=== PATIENT | male | born 1970 | race Caucasian/White ===

== ENCOUNTER → 2017-01-10 | Outpatient (CLI) | payer OTHER ==
[~2017-01-10] MED LIST: 'PARAFON FORTE500 M1 PO; BACTRIM DS 8001 TA1 PO; BENTYL10 MG PO; CIPRO500 MG PO; CLARITIN10 MG PO; CLINDAMYCIN150 MG PO; CORTISPORIN SUS10 ML OT; CYCLOBENZAPRINE10 MG PO; DAYPRO600 M1 PO; EC NAPROSYN500 MG PO; FLEXERIL10 MG; FLEXERIL10 MG PO; KETOROLAC10 MG PO; KLONOPIN0.5 MG PO; LIDEX 0.05% CRE15 GM T; MEDROL DOSEPAK4 MG PO; MOTRIN,RUFEN800 MG; MOTRIN800 MG PO; Motrin,Rufen800 MG PO; NAPROSYN500 MG PO; NKHM; NORFLEX100 MG PO; NORTRIPTYLINE10 MG PO; ORPHENADRINE C100 M1 PO; Orphenadrine C100 MG PO; PREDNICOT20 MG PO; PREDNISONE10 MG; PREDNISONE10 MG PO; PREDNISONE20 M1 PO; ROBAXIN750 MG PO; SEPTRA DS 800 M1 TAB PO; SKELAXIN800 MG PO; TORADOL10 MG PO; TRAMADOL HCL50 MG PO; ULTRAM50 MG PO; VICODIN 5/500 505 MG PO; VISTARIL50 MG PO; ZOFRAN ODT4 MG SL
== END | disposition home or self-care (01) ==
LOC: LAB 06:27
DX: E16.1 Other hypoglycemia (principal)

== ENCOUNTER → 2017-02-23 | Outpatient (CLI) | payer OTHER | END | disposition home or self-care (01) | LOC: RAD 15:16 | DX: M25.362 Other instability, left knee (principal); M25.562 Pain in left knee ==

== ENCOUNTER → 2017-04-02 | Outpatient (CLI) | payer OTHER ==
[2017-04-02 10:48] LABS: BASO # 0.1 10*3/uL (0.0-0.1); BASO % 0.8 % (0.0-1.0); EOS # 0.5 10*3/uL (0.0-0.4); EOS % 6.5 % (1.0-4.0); HEMATOCRIT 48.1 % (42.0-52.0); HEMOGLOBIN 17.2 g/dl (14.0-18.0); LYMPH # 2.1 10*3/uL (1.3-4.4); LYMPH % 28.3 % (27.0-41.0); MEAN CELL VOLUME 83.2 fl (80.0-94.0); MEAN CORPUSCULAR HGB 29.8 pg (27.0-31.0); MEAN CORPUSCULAR HGB CONC 35.8 g/dl (33.0-37.0); MEAN PLATELET VOLUME 10.2 fl (9.6-12.3); MONO # 0.6 10*3/uL (0.1-1.0); MONO % 8.8 % (3.0-9.0); PLATELET COUNT AUTOMATED 228 10*3/uL (130-400); RED BLOOD COUNT 5.78 10*6/uL (4.50-5.90); WHITE BLOOD COUNT 7.3 10*3/uL (4.8-10.8)
[2017-04-02 10:59] LABS: BILIRUBIN NEGATIVE (NEGATIVE); BLOOD NEGATIVE (NEGATIVE); CLARITY SL CLOUDY (CLEAR); COLOR YELLOW (YELLOW); GLUCOSE NEGATIVE (NEGATIVE); KETONE NEGATIVE (NEGATIVE); LEUKO ESTERASE NEGATIVE (NEGATIVE); NITRITE NEGATIVE (NEGATIVE); PH 6.5 (5.0-9.0); PROTEIN TRACE (NEGATIVE)
[2017-04-02 11:16] LABS: BUN 12 mg/dl (7-24); CARBON DIOXIDE 28 mmol/L (21-32); CHLORIDE 106 mmol/L (98-107); EST GLOM FILT AFRICAN AMERICAN > 60 ml/min; GLUCOSE 94 mg/dL (65-99); POTASSIUM 3.9 mmol/L (3.5-5.1); SODIUM 142 mmol/L (136-145)
[2017-04-02 11:19] LABS: BACTERIA 2+; EPITHELIAL CELLS 0-2; MUCOUS 2+; WBC 0-2 wbc/hpf (0-5)
== END | disposition home or self-care (01) ==
LOC: LAB 09:43
PROVIDERS: Orthopaedic Surgery
DX: Z01.818 Encounter for other preprocedural examination (principal); S83.242A Other tear of medial meniscus, current injury, left knee, initial encounter; X58.XXXA Exposure to other specified factors, initial encounter; Y93.89 Activity, other specified; Y92.89 Other specified places as the place of occurrence of the external cause; Y99.8 Other external cause status

== ENCOUNTER → 2017-04-09 | Day surgery (SDC) | payer OTHER ==
[2017-04-09] VITALS (8 sets, daily range): BP systolic 108–129; BP diastolic 72–88
[~2017-04-09] VITALS: Ht 175.2 cm; Wt 88.5 kg
[~2017-04-09] MED LIST changes: +ZOFRAN4 MG PO
--- NOTE | ~2017-04-09 | O ---
[place], [place] OPERATIVE NOTE NAME: JONNIE TRAORE [facility] #: [id number] UNIT #: [id number] ROOM: DOCTOR: JEMIMA SOSA DO BIRTHDATE: [birth year] DOS: 04/09/2017 PREOPERATIVE DIAGNOSES: Left knee medial meniscus tear and chondromalacia. 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 OPERATIVE PROCEDURE: Arthroscopy of left knee with medial meniscus tear debridement and chondroplasty of the patella on the medial femoral condyle. SURGEON: Jemima Sosa DO. [employer]: [employer]. ANESTHESIA: Maia Bueno CRNA INDICATIONS: The patient is a 46-year-old male with a history of pain and disability about the left knee, unrelieved with conservative care. The risks and benefits of the procedure were explained to the patient preoperatively. Preoperative labs and x-rays were obtained including preoperative MRI. DESCRIPTION OF PROCEDURE: The left knee was marked in the holding area. The patient was brought to the operative suite. He was placed supine on the operative table. General anesthetic with LMA intubation was performed. Left lower extremity was prepped and draped in usual orthopedic fashion. Timeout was performed. Leg was placed in a leg smith. The area about the medial and lateral parapatellar portals were injected with Marcaine 0.5% with epinephrine. The lateral portal was created using a #11 blade followed by blunt trocar and cannula. The trocar was removed. The cannula remained. The inflow and the outflow were established through the cannula. The arthroscopy camera was placed through the cannula as well. The medial compartment was entered with a spinal needle, followed by #11 blade and a blunt trocar. The knee was evaluated in a systematic fashion. The medial compartment was initially evaluated and noted to have grade 1 chondromalacia about the medial femoral condyle and a small tear of the posterior medial meniscus. The medial meniscus was debrided using a handheld instrumentation and a full radius resector to remove any debris. The articular surface was gently smoothed using a handheld augusto ball rasp and a full radius resector. The notch was identified and evaluated. The anterior cruciate ligament was noted to be intact to probing and anterior drawer test. Lateral compartment was identified and evaluated. The meniscus was intact to probing and the articular surface was essentially intact. The patellofemoral joint was identified and evaluated. There was noted to be grade 1 chondromalacia throughout the patellar surfaces which were gently smoothed using the full radius resector and an arthroscopy wand as well as a handheld augusto ball rasp. [place], [place] OPERATIVE NOTE NAME: JONNIE TRAORE UNIT #: [id number] ROOM: DOCTOR: JEMIMA SOSA DO BIRTHDATE: [birth year] The instrumentation was switched using arthroscopy camera medially and instrumentation laterally. All compartments were again entered and evaluated. Further debridement was performed about the medial meniscus and the articular surface of the medial femoral condyle. When no further repairable or debridable pathology was present, the knee was copiously irrigated with remainder of lactated ringers with epinephrine. The instrumentation was removed. The portals were expressed of any excess fluid. The portals were closed with 3-0 nylon. The knee was injected with Marcaine 0.5% with epinephrine. Xeroform, 4 x 4s, ABDs, cast padding and an Magdaleno were used to create a postoperative dressing. The anesthetic was reversed. The patient was extubated and taken to recovery room in satisfactory condition. Sponge and needle count correct. ESTIMATED BLOOD LOSS: 5 mL. SPECIMENS: None. DRAINS: None. PACKING: None. FINDINGS: 1. Grade 1 chondromalacia about the medial femoral condyle and the patella articular surface. 2. Medial meniscus tear. JEMIMA SOSA DO CM:OPRECORD:OPERATIVE NOTE [id number] JEMIMA SOSA DO 04/09/171840 interface
== END | disposition home or self-care (01) ==
LOC: SDC 04-02 08:45 → LAB 08:45 → SDC 08:45
DX: S83.242A Other tear of medial meniscus, current injury, left knee, initial encounter (principal); M22.42 Chondromalacia patellae, left knee; X58.XXXA Exposure to other specified factors, initial encounter; Y93.9 Activity, unspecified; Y92.9 Unspecified place or not applicable; Y99.9 Unspecified external cause status; I10 Essential (primary) hypertension; F41.9 Anxiety disorder, unspecified; J45.909 Unspecified asthma, uncomplicated; I38 Endocarditis, valve unspecified; Z87.01 Personal history of pneumonia (recurrent); I49.3 Ventricular premature depolarization; Z98.890 Other specified postprocedural states; Z82.5 Family history of asthma and other chronic lower respiratory diseases

== ENCOUNTER → 2017-05-12 | Outpatient (CLI) | payer OTHER ==
[2017-05-12 09:52] LABS: BASO % 0.5 % (0.0-1.0); EOS # 0.3 10*3/uL (0.0-0.4); EOS % 5.4 % (1.0-4.0); HEMATOCRIT 44.6 % (42.0-52.0); HEMOGLOBIN 16.1 g/dl (14.0-18.0); LYMPH # 1.9 10*3/uL (1.3-4.4); MEAN CELL VOLUME 82.3 fl (80.0-94.0); MEAN CORPUSCULAR HGB 29.7 pg (27.0-31.0); MEAN CORPUSCULAR HGB CONC 36.1 g/dl (33.0-37.0); MONO # 0.5 10*3/uL (0.1-1.0); MONO % 7.7 % (3.0-9.0); NEUT # 3.2 10*3/uL (2.3-7.9); NEUT % 54.1 % (47.0-73.0); PLATELET COUNT AUTOMATED 214 10*3/uL (130-400); RED BLOOD COUNT 5.42 10*6/uL (4.50-5.90); RED CELL DISTRI WIDTH 12.3 % (0-14.5); WHITE BLOOD COUNT 5.9 10*3/uL (4.8-10.8)
[2017-05-12 10:27] LABS: ALBUMIN 3.9 gm/dl (3.1-4.5); BUN 9 mg/dl (7-24); CARBON DIOXIDE 25 mmol/L (21-32); CHLORIDE 107 mmol/L (98-107); CHOLESTEROL 139 mg/dL (<200); EST GLOM FILT AFRICAN AMERICAN > 60 ml/min; GLUCOSE 94 mg/dL (65-99); POTASSIUM 3.8 mmol/L (3.5-5.1); SGOT/AST 16 IU/L (3-35); SGPT/ALT 29 U/L (12-78); SODIUM 141 mmol/L (136-145); TRIGLYCERIDES 93 mg/dl (<150); VLDL CHOLESTEROL 19 mg/dL (6-40)
[2017-05-12 10:36] LABS: ALKALINE PHOSPHATASE 77 U/L (45-117); BILIRUBIN, TOTAL 0.7 mg/dl (0.2-1.0); HDL CHOLESTEROL 35 mg/dl (40-60); LDL CHOLESTEROL 85 mg/dL (9-159); TOTAL PROTEIN 6.9 gm/dL (6.4-8.2)
== END | disposition home or self-care (01) ==
LOC: LAB 05-11 15:35
PROVIDERS: Internal Medicine
DX: E66.09 Other obesity due to excess calories (principal); E78.00 Pure hypercholesterolemia, unspecified

== ENCOUNTER 2017-10-16 01:09 | Emergency (ER) | payer SELFPAY ==
[~2017-10-16] VITALS: Ht 175.2 cm; Wt 89.8 kg
[2017-10-16 01:13] VITALS: BP 149/89
[2017-10-16] MEDS ORDERED: NAPROSYN500 MG PO (02:42)
== END 2017-10-16 03:10 | disposition home or self-care (01) ==
LOC: ED 01:09
DX: S93.492A Sprain of other ligament of left ankle, initial encounter (principal); G89.29 Other chronic pain; E16.2 Hypoglycemia, unspecified; Z88.0 Allergy status to penicillin; Z88.5 Allergy status to narcotic agent; Z88.6 Allergy status to analgesic agent; Z88.8 Allergy status to other drugs, medicaments and biological substances; Z79.899 Other long term (current) drug therapy; W01.0XXA Fall on same level from slipping, tripping and stumbling without subsequent striking against object, initial encounter; Y93.89 Activity, other specified; Y92.89 Other specified places as the place of occurrence of the external cause; Y99.8 Other external cause status

== ENCOUNTER 2017-11-02 20:17 | Emergency (ER) | payer SELFPAY ==
[~2017-11-02] VITALS: Ht 175.2 cm; Wt 90.7 kg
[2017-11-02 20:32] VITALS: BP 142/94
[2017-11-02] MEDS ORDERED: CEPHALEXIN500 M1 PO (20:48)
== END 2017-11-02 20:53 | disposition home or self-care (01) ==
LOC: ED 20:17
DX: L03.032 Cellulitis of left toe (principal); Z98.890 Other specified postprocedural states; Z88.0 Allergy status to penicillin; Z88.6 Allergy status to analgesic agent; Z88.5 Allergy status to narcotic agent

== ENCOUNTER → 2017-12-26 | Outpatient (CLI) | payer OTHER ==
[~2017-12-26] MED LIST changes: +CEPHALEXIN500 M1 PO
[2017-12-26 10:09] LABS: BASO # 0.1 10*3/uL (0.0-0.1); BASO % 0.6 % (0.0-1.0); EOS # 0.5 10*3/uL (0.0-0.4); EOS % 5.5 % (1.0-4.0); HEMOGLOBIN 15.6 g/dl (14.0-18.0); LYMPH # 2.6 10*3/uL (1.3-4.4); LYMPH % 29.9 % (27.0-41.0); MEAN CELL VOLUME 84.8 fl (80.0-94.0); MEAN CORPUSCULAR HGB 30.1 pg (27.0-31.0); MEAN CORPUSCULAR HGB CONC 35.5 g/dl (33.0-37.0); MEAN PLATELET VOLUME 9.9 fl (9.6-12.3); MONO # 0.7 10*3/uL (0.1-1.0); MONO % 7.7 % (3.0-9.0); NEUT # 4.8 10*3/uL (2.3-7.9); NEUT % 55.9 % (47.0-73.0); PLATELET COUNT AUTOMATED 238 10*3/uL (130-400); RED BLOOD COUNT 5.19 10*6/uL (4.50-5.90); RED CELL DISTRI WIDTH 11.9 % (0-14.5); WHITE BLOOD COUNT 8.6 10*3/uL (4.8-10.8)
[2017-12-26 10:38] LABS: ALBUMIN 3.8 gm/dl (3.1-4.5); ALKALINE PHOSPHATASE 77 U/L (45-117); BUN 13 mg/dl (7-24); CHLORIDE 107 mmol/L (98-107); CHOLESTEROL 142 mg/dL (<200); CREATININE 1.05 mg/dL (0.70-1.30); HDL CHOLESTEROL 34 mg/dl (40-60); LDL CHOLESTEROL 91 mg/dL (9-159); POTASSIUM 3.7 mmol/L (3.5-5.1); SGOT/AST 13 IU/L (3-35); SGPT/ALT 25 U/L (12-78); SODIUM 141 mmol/L (136-145); TOTAL PROTEIN 6.8 gm/dL (6.4-8.2); TRIGLYCERIDES 87 mg/dl (<150); VLDL CHOLESTEROL 17 mg/dL (6-40)
== END | disposition home or self-care (01) ==
LOC: LAB 09:43
PROVIDERS: Internal Medicine
DX: R35.1 Nocturia (principal); E66.3 Overweight; I10 Essential (primary) hypertension

== ENCOUNTER → 2018-02-03 | Outpatient (CLI) | payer OTHER | END | disposition home or self-care (01) | LOC: ORTHO 00:28 | DX: M25.561 Pain in right knee (principal); M25.461 Effusion, right knee ==

== ENCOUNTER 2018-02-22 21:52 | Emergency (ER) | payer OTHER ==
[~2018-02-22] VITALS: Ht 177.8 cm; Wt 86.2 kg
[2018-02-22 21:56] VITALS: BP 140/82
[2018-02-22] MEDS ORDERED: Orphenadrine C100 MG PO (22:59)
[2018-02-22] MEDS ORDERED: KETOROLAC10 MG PO (22:59)
== END 2018-02-22 23:14 | disposition home or self-care (01) ==
LOC: ED 21:52
DX: M47.816 Spondylosis without myelopathy or radiculopathy, lumbar region (principal); M54.40 Lumbago with sciatica, unspecified side; Z88.0 Allergy status to penicillin; Z88.5 Allergy status to narcotic agent; Z88.6 Allergy status to analgesic agent; Z88.8 Allergy status to other drugs, medicaments and biological substances

== ENCOUNTER → 2018-03-10 | Outpatient (CLI) | payer OTHER | END | disposition home or self-care (01) | LOC: LAB 10:45 | DX: F33.1 Major depressive disorder, recurrent, moderate (principal) ==

== ENCOUNTER → 2018-03-12 | Outpatient (CLI) | payer OTHER | END | disposition home or self-care (01) | LOC: ORTHO 01:52 | DX: M25.562 Pain in left knee (principal); M25.552 Pain in left hip ==

== ENCOUNTER → 2018-04-14 | Outpatient (CLI) | payer OTHER ==
[~2018-04-14] MED LIST changes: +MOBIC7.5 MG PO
== END | disposition home or self-care (01) ==
LOC: MRI 08:44
DX: M71.22 Synovial cyst of popliteal space [Baker], left knee (principal)

== ENCOUNTER 2018-05-09 22:15 | Emergency (ER) | payer OTHER ==
[~2018-05-09] VITALS: Ht 175.2 cm; Wt 90.7 kg
[~2018-05-09 22:15] MED LIST changes: -MOBIC7.5 MG PO
[2018-05-09 22:58] LABS: BASO # 0.1 10*3/uL (0.0-0.1); BASO % 0.4 % (0.0-1.0); EOS # 0.1 10*3/uL (0.0-0.4); EOS % 0.5 % (1.0-4.0); HEMATOCRIT 41.5 % (42.0-52.0); HEMOGLOBIN 14.8 g/dl (14.0-18.0); LYMPH # 1.7 10*3/uL (1.3-4.4); MEAN CELL VOLUME 83.5 fl (80.0-94.0); MEAN CORPUSCULAR HGB 29.8 pg (27.0-31.0); MEAN CORPUSCULAR HGB CONC 35.7 g/dl (33.0-37.0); MONO % 7.6 % (3.0-9.0); NEUT # 10.1 10*3/uL (2.3-7.9); PLATELET COUNT AUTOMATED 212 10*3/uL (130-400); RED BLOOD COUNT 4.97 10*6/uL (4.50-5.90); RED CELL DISTRI WIDTH 12.2 % (0-14.5)
[2018-05-09 23:05] LABS: ALBUMIN 4.3 gm/dl (3.1-4.5); ALKALINE PHOSPHATASE 71 U/L (45-117); BUN 19 mg/dl (7-24); CHLORIDE 104 mmol/L (98-107); CREATININE 1.29 mg/dL (0.70-1.30); POTASSIUM 3.5 mmol/L (3.5-5.1); SGOT/AST 22 IU/L (3-35); SGPT/ALT 35 U/L (12-78); SODIUM 140 mmol/L (136-145); TOTAL PROTEIN 6.8 gm/dL (6.4-8.2)
[2018-05-10 00:56] VITALS: BP 106/63
[2018-05-10] MEDS ORDERED: Orphenadrine C100 MG PO (01:18)
[2018-05-10] MEDS ORDERED: MOBIC7.5 MG PO (01:18)
== END 2018-05-10 01:37 | disposition home or self-care (01) ==
LOC: ED 22:15
PROVIDERS: Emergency Medicine
DX: M54.5 Low back pain (principal); E86.0 Dehydration; I10 Essential (primary) hypertension; G89.29 Other chronic pain; Z88.0 Allergy status to penicillin; Z88.5 Allergy status to narcotic agent; Z88.6 Allergy status to analgesic agent

== ENCOUNTER → 2018-12-02 | Outpatient (CLI) | payer OTHER ==
[~2018-12-02] MED LIST changes: +MOBIC7.5 MG PO
== END | disposition home or self-care (01) ==
LOC: LAB 14:39
DX: K90.0 Celiac disease (principal)

== ENCOUNTER → 2018-12-02 | Outpatient (CLI) | payer OTHER ==
[~2018-12-02] MED LIST changes: +FLONASE ALLERG9.9 ML NAS; +METOPROLOL SUCC25 M2 PO; +PAROXETINE HCL10 MG PO; +ZITHROMAX250 MG PO
== END | disposition home or self-care (01) ==
LOC: RESCLI 09:34
DX: K21.9 Gastro-esophageal reflux disease without esophagitis (principal); K90.0 Celiac disease; K58.9 Irritable bowel syndrome, unspecified; I10 Essential (primary) hypertension; Z86.010 Personal history of colon polyps; Z79.899 Other long term (current) drug therapy; Z88.8 Allergy status to other drugs, medicaments and biological substances; Z88.0 Allergy status to penicillin

== ENCOUNTER 2019-01-20 00:45 | Emergency (ER) | payer OTHER ==
[~2019-01-20] VITALS: Ht 175.2 cm; Wt 96.2 kg
--- NOTE | ~2019-01-20 | EKG ---
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
[~2019-01-20 00:45] MED LIST changes: -FLONASE ALLERG9.9 ML NAS; -METOPROLOL SUCC25 M2 PO; -PAROXETINE HCL10 MG PO; -ZITHROMAX250 MG PO
[2019-01-20] MEDS ORDERED: METOPROLOL SUCC25 M2 PO (00:59)
[2019-01-20] MEDS ORDERED: PAROXETINE HCL10 MG PO (00:59)
[2019-01-20 01:31] LABS: BASO % 0.6 % (0.0-1.0); EOS # 0.5 10*3/uL (0.0-0.4); HEMOGLOBIN 15.9 g/dl (14.0-18.0); LYMPH # 1.8 10*3/uL (1.3-4.4); LYMPH % 25.3 % (27.0-41.0); MEAN CELL VOLUME 86.7 fl (80.0-94.0); MEAN CORPUSCULAR HGB 30.6 pg (27.0-31.0); MEAN CORPUSCULAR HGB CONC 35.3 g/dl (33.0-37.0); MONO # 0.5 10*3/uL (0.1-1.0); MONO % 7.2 % (3.0-9.0); NEUT # 4.3 10*3/uL (2.3-7.9); NEUT % 59.2 % (47.0-73.0); PLATELET COUNT AUTOMATED 215 10*3/uL (130-400); RED BLOOD COUNT 5.19 10*6/uL (4.50-5.90); RED CELL DISTRI WIDTH 12.1 % (0-14.5); WHITE BLOOD COUNT 7.3 10*3/uL (4.8-10.8)
[2019-01-20 01:50] LABS: ALBUMIN 3.4 gm/dl (3.1-4.5); ALKALINE PHOSPHATASE 83 U/L (45-117); BUN 11 mg/dl (7-24); CHLORIDE 109 mmol/L (98-107); CREATININE 0.97 mg/dL (0.70-1.30); POTASSIUM 3.9 mmol/L (3.5-5.1); SGOT/AST 71 IU/L (3-35); SGPT/ALT 187 U/L (12-78); SODIUM 142 mmol/L (136-145); TOTAL PROTEIN 7.1 gm/dL (6.4-8.2)
[2019-01-20 01:52] LABS: TROPONIN I < 0.015 ng/ml (<0.045)
[2019-01-20 02:01] VITALS: BP 141/88
[2019-01-20] MEDS ORDERED: FLONASE ALLERG9.9 ML NAS (02:04)
[2019-01-20] MEDS ORDERED: ZITHROMAX250 MG PO (02:04)
== END 2019-01-20 02:17 | disposition home or self-care (01) ==
LOC: ED 00:45
PROVIDERS: Physician Assistant
DX: J32.0 Chronic maxillary sinusitis (principal); H92.02 Otalgia, left ear; Z88.8 Allergy status to other drugs, medicaments and biological substances; Z88.1 Allergy status to other antibiotic agents; Z88.5 Allergy status to narcotic agent; Z88.6 Allergy status to analgesic agent; Z79.899 Other long term (current) drug therapy; Z90.49 Acquired absence of other specified parts of digestive tract

== ENCOUNTER 2019-02-21 02:12 | Emergency (ER) | payer OTHER ==
[~2019-02-21] VITALS: Wt 95.3 kg
[2019-02-21 02:12] VITALS: BP 132/80
[~2019-02-21 02:12] MED LIST changes: +FLONASE ALLERG9.9 ML NAS; +METOPROLOL SUCC25 M2 PO; +PAROXETINE HCL10 MG PO; +ZITHROMAX250 MG PO
== END 2019-02-21 04:20 | disposition home or self-care (01) ==
LOC: ED 02:12
DX: S96.911A Strain of unspecified muscle and tendon at ankle and foot level, right foot, initial encounter (principal); Z88.8 Allergy status to other drugs, medicaments and biological substances; Z88.0 Allergy status to penicillin; Z88.5 Allergy status to narcotic agent; Z88.6 Allergy status to analgesic agent; Z79.899 Other long term (current) drug therapy; X50.9XXA Other and unspecified overexertion or strenuous movements or postures, initial encounter; Y93.66 Activity, soccer; Y92.322 Soccer field as the place of occurrence of the external cause; Y99.8 Other external cause status

== ENCOUNTER 2020-05-25 23:29 | Emergency (ER) | payer BC ==
[~2020-05-25] VITALS: Ht 175.2 cm; Wt 93.1 kg
[2020-05-25 23:40] VITALS: BP 124/78
== END 2020-05-26 01:47 | disposition home or self-care (01) ==
LOC: ED 23:29
DX: S60.221A Contusion of right hand, initial encounter (principal); I10 Essential (primary) hypertension; J45.909 Unspecified asthma, uncomplicated; M47.816 Spondylosis without myelopathy or radiculopathy, lumbar region; Z88.0 Allergy status to penicillin; Z88.6 Allergy status to analgesic agent; Z88.8 Allergy status to other drugs, medicaments and biological substances; Z79.899 Other long term (current) drug therapy; W21.210A Struck by ice hockey stick, initial encounter; Y93.65 Activity, lacrosse and field hockey; Y92.328 Other athletic field as the place of occurrence of the external cause; Y99.8 Other external cause status

== ENCOUNTER 2021-05-10 00:14 | Emergency (ER) | payer BC ==
[~2021-05-10] VITALS: Ht 175.2 cm; Wt 90.7 kg
[2021-05-10 00:29] VITALS: BP 143/77
[2021-05-10] MEDS ORDERED: VIBRAMYCIN100 MG PO (00:58)
== END 2021-05-10 01:21 | disposition home or self-care (01) ==
LOC: ED 00:14
DX: H66.92 Otitis media, unspecified, left ear (principal); Z88.0 Allergy status to penicillin; Z88.5 Allergy status to narcotic agent; Z88.6 Allergy status to analgesic agent; Z88.8 Allergy status to other drugs, medicaments and biological substances

== ENCOUNTER 2023-06-25 03:54 | Emergency (ER) | payer BC ==
[~2023-06-25] VITALS: Ht 175.2 cm; Wt 93.0 kg
[~2023-06-25 03:54] MED LIST changes: +VIBRAMYCIN100 MG PO
[2023-06-25 04:03] VITALS: BP 148/95
== END 2023-06-25 04:45 | disposition home or self-care (01) ==
LOC: ED 03:54
DX: M54.31 Sciatica, right side (principal); Z88.8 Allergy status to other drugs, medicaments and biological substances; Z88.0 Allergy status to penicillin; Z88.5 Allergy status to narcotic agent; Z88.6 Allergy status to analgesic agent; Z79.2 Long term (current) use of antibiotics; Z79.899 Other long term (current) drug therapy

== ENCOUNTER 2023-09-13 12:34 | Emergency (ER) | payer BC ==
[~2023-09-13] VITALS: Ht 175.2 cm; Wt 93.0 kg
[2023-09-13 12:46] VITALS: BP 150/86
[2023-09-13] MEDS ORDERED: DECADRON4 MG PO (13:58)
[2023-09-13] MEDS ORDERED: MELOXICAM7.5 MG PO (13:58)
== END 2023-09-13 14:02 | disposition home or self-care (01) ==
LOC: ED 12:34
DX: M54.50 Low back pain, unspecified (principal); M79.604 Pain in right leg; F41.9 Anxiety disorder, unspecified; I10 Essential (primary) hypertension; J45.909 Unspecified asthma, uncomplicated; Z88.0 Allergy status to penicillin; Z88.5 Allergy status to narcotic agent; Z88.8 Allergy status to other drugs, medicaments and biological substances; Z98.890 Other specified postprocedural states

== ENCOUNTER 2024-01-10 17:27 | Emergency (ER) | payer BC ==
[~2024-01-10] VITALS: Ht 175.2 cm; Wt 90.7 kg
[~2024-01-10 17:27] MED LIST changes: +DECADRON4 MG PO; +MELOXICAM7.5 MG PO
[2024-01-10 17:45] VITALS: BP 151/78
[2024-01-10] MEDS ORDERED: Ketorolac Tromethamine 15 MG/ML VIAL IM ONE (20:30)
[2024-01-10] MEDS ORDERED: Dexamethasone Sodium Phospha 20 MG/5 ML VIAL IM ONE (20:30)
[2024-01-10] MEDS ORDERED: CYCLOBENZAPRINE10 MG PO (20:33)
== END 2024-01-10 21:40 | disposition home or self-care (01) ==
LOC: ED 17:27
DX: M54.50 Low back pain, unspecified (principal); Z88.8 Allergy status to other drugs, medicaments and biological substances; Z88.0 Allergy status to penicillin; Z88.6 Allergy status to analgesic agent; Z79.899 Other long term (current) drug therapy; Z79.2 Long term (current) use of antibiotics; X50.0XXA Overexertion from strenuous movement or load, initial encounter; Y93.89 Activity, other specified; Y92.89 Other specified places as the place of occurrence of the external cause; Y99.8 Other external cause status

== ENCOUNTER 2024-02-22 20:43 | Emergency (ER) | payer BC ==
[~2024-02-22] VITALS: Ht 175.2 cm; Wt 93.0 kg
[2024-02-22 21:08] VITALS: BP 140/82
[2024-02-22 21:36] LABS: BASO # 0.1 10*3/uL (0.0-0.1); BASO % 0.6 % (0.0-1.0); EOS # 0.4 10*3/uL (0.0-0.4); EOS % 4.3 % (1.0-4.0); HEMATOCRIT 49.5 % (42.0-52.0); LYMPH # 1.9 10*3/uL (1.3-4.4); LYMPH % 23.6 % (27.0-41.0); MEAN CELL VOLUME 85.6 fl (80.0-94.0); MEAN CORPUSCULAR HGB 29.1 pg (27.0-31.0); MEAN CORPUSCULAR HGB CONC 33.9 g/dl (33.0-37.0); MEAN PLATELET VOLUME 9.8 fl (9.6-12.3); MONO # 0.8 10*3/uL (0.1-1.0); MONO % 10.4 % (3.0-9.0); NEUT # 4.9 10*3/uL (2.3-7.9); NEUT % 60.7 % (47.0-73.0); PLATELET COUNT AUTOMATED 255 10*3/uL (130-400); RED BLOOD COUNT 5.78 10*6/uL (4.50-5.90); RED CELL DISTRI WIDTH 12.1 % (0-14.5); WHITE BLOOD COUNT 8.1 10*3/uL (4.8-10.8)
[2024-02-22 21:57] LABS: ALKALINE PHOSPHATASE 96 U/L (46-116); BUN 11 mg/dl (9-23); CHLORIDE 107 mmol/L (98-107); POTASSIUM 3.9 mmol/L (3.4-5.1); SGPT/ALT 35 U/L (5-49); TOTAL PROTEIN 7.1 gm/dL (6.0-8.0)
[2024-02-22] MEDS ORDERED: PREDNISONE50 MG PO (22:14)
[2024-02-22] MEDS ORDERED: ZITHROMAX250 MG PO (22:14)
[2024-02-22] MEDS ORDERED: predniSONE 20 MG TAB PO ONE (22:15)
[2024-02-22] MEDS ORDERED: AZITHROMYCIN 250 MG TAB PO ONE (22:15)
== END 2024-02-22 22:34 | disposition home or self-care (01) ==
LOC: ED 20:43
PROVIDERS: Nurse Practitioner Family
DX: J32.9 Chronic sinusitis, unspecified (principal); Z20.822 Contact with and (suspected) exposure to COVID-19; I10 Essential (primary) hypertension; F41.9 Anxiety disorder, unspecified; Z88.0 Allergy status to penicillin; Z88.5 Allergy status to narcotic agent; Z88.8 Allergy status to other drugs, medicaments and biological substances; Z90.49 Acquired absence of other specified parts of digestive tract; Z98.890 Other specified postprocedural states

== ENCOUNTER → 2024-07-15 | Outpatient (CLI) | payer BC ==
[~2024-07-15] MED LIST changes: +PREDNISONE50 MG PO
== END | disposition home or self-care (01) ==
LOC: ORTHO 04:35
PROVIDERS: ATTEND Orthopaedic Surgery
DX: M71.21 Synovial cyst of popliteal space [Baker], right knee (principal); M79.669 Pain in unspecified lower leg; M79.89 Other specified soft tissue disorders

== ENCOUNTER 2024-08-07 16:19 | Emergency (ER) | payer BC ==
[~2024-08-07] VITALS: Ht 175.2 cm; Wt 83.9 kg
[2024-08-07 16:42] VITALS: BP 128/87
[2024-08-07] MEDS ORDERED: methylPREDNISolone sod succ 125 MG VIAL IM ONE (16:55)
[2024-08-07] MEDS ORDERED: Ketorolac Tromethamine 30 MG/ML VIAL IM ONE (16:55)
[2024-08-07] MEDS ORDERED: KETOROLAC10 MG PO (17:00)
[2024-08-08] MEDS ORDERED: KETOROLAC10 MG PO (18:17)
== END 2024-08-07 17:13 | disposition home or self-care (01) ==
LOC: ED 16:19
DX: M62.830 Muscle spasm of back (principal); I10 Essential (primary) hypertension; F41.9 Anxiety disorder, unspecified; E16.2 Hypoglycemia, unspecified; Z88.0 Allergy status to penicillin; Z88.5 Allergy status to narcotic agent; Z88.8 Allergy status to other drugs, medicaments and biological substances; Z90.49 Acquired absence of other specified parts of digestive tract; Z98.890 Other specified postprocedural states

== ENCOUNTER → 2024-10-05 | Outpatient (CLI) | payer BC | END | disposition home or self-care (01) | LOC: ORTHO 03:47 | PROVIDERS: ATTEND Orthopaedic Surgery | DX: M19.072 Primary osteoarthritis, left ankle and foot (principal); M25.572 Pain in left ankle and joints of left foot ==

== ENCOUNTER 2025-04-09 11:52 | Emergency (ER) | payer BC ==
[~2025-04-09] VITALS: Ht 175.2 cm; Wt 83.9 kg
[2025-04-09 12:00] VITALS: BP 135/84
[2025-04-09] MEDS ORDERED: Ketorolac Tromethamine 60 MG/2 ML VIAL IM ONE (12:45)
[2025-04-09] MEDS ORDERED: Motrin,Rufen800 MG PO (13:02)
== END 2025-04-09 13:10 | disposition home or self-care (01) ==
LOC: ED 11:52
DX: S62.101A Fracture of unspecified carpal bone, right wrist, initial encounter for closed fracture (principal); Z88.8 Allergy status to other drugs, medicaments and biological substances; Z88.0 Allergy status to penicillin; Z88.5 Allergy status to narcotic agent; Z88.6 Allergy status to analgesic agent; Z79.899 Other long term (current) drug therapy; Z98.890 Other specified postprocedural states; W18.39XA Other fall on same level, initial encounter; Y93.89 Activity, other specified; Y92.89 Other specified places as the place of occurrence of the external cause; Y99.8 Other external cause status

== ENCOUNTER → 2025-05-12 | Outpatient (CLI) | payer BC ==
[2025-05-12 16:59] LABS: BASO # 0.0 10*3/uL (0.0-0.1); BASO % 0.6 % (0.0-1.0); EOS # 0.3 10*3/uL (0.0-0.4); EOS % 4.4 % (1.0-4.0); MEAN CELL VOLUME 84.2 fl (80.0-94.0); MEAN CORPUSCULAR HGB 29.8 pg (27.0-31.0); MEAN PLATELET VOLUME 9.8 fl (9.6-12.3); MONO # 0.6 10*3/uL (0.1-1.0); MONO % 9.2 % (3.0-9.0); NEUT # 3.5 10*3/uL (2.3-7.9); NEUT % 53.0 % (47.0-73.0); NUCLEATED RED BLOOD CELL 0.0 % (0.0-0.0); NUCLEATED RED BLOOD CELL 0.0 10*3/uL (0.0-0.0); PLATELET COUNT AUTOMATED 225 10*3/uL (130-400); RED CELL DISTRI WIDTH 12.3 % (0-14.5)
[2025-05-12 17:27] LABS: BUN 11 mg/dl (9-23); SGPT/ALT 20 U/L (5-49)
== END | disposition home or self-care (01) ==
LOC: LAB 16:37
PROVIDERS: ATTEND Podiatrist Foot & Ankle Surgery
DX: Z01.812 Encounter for preprocedural laboratory examination (principal)

== ENCOUNTER 2025-05-24 06:14 | Emergency (ER) | payer BC ==
[~2025-05-24] VITALS: Ht 175.2 cm; Wt 85.7 kg
[2025-05-24 06:20] VITALS: BP 137/84
[2025-05-24] MEDS ORDERED: METHOCARBAMOL750 M1 PO (06:28)
[2025-05-24] MEDS ORDERED: NAPROSYN500 MG PO (06:28)
[2025-05-24] MEDS ORDERED: Dexamethasone Sodium Phospha 20 MG/5 ML VIAL IM ONE (06:30)
== END 2025-05-24 06:39 | disposition home or self-care (01) ==
LOC: ED 06:14
DX: M54.41 Lumbago with sciatica, right side (principal); Z88.8 Allergy status to other drugs, medicaments and biological substances; Z88.0 Allergy status to penicillin; Z88.5 Allergy status to narcotic agent; Z88.6 Allergy status to analgesic agent; Z79.899 Other long term (current) drug therapy